=== PATIENT | male | born 1960 | race American Indian/Alaskan Native ===

== ENCOUNTER → 2018-11-04 11:27 | Outpatient (CLI) | payer MEDICARE, OTHER, SELFPAY ==
--- NOTE | 2018-11-04 | DI.RAD.S_ITS ---
PROCEDURE: XR CHEST 2V INDICATIONS: COUGH TECHNIQUE: 2 views of the chest were acquired. COMPARISON: [facility], , CHEST 2 VIEW, 08/31/2013, 13:05. FINDINGS: Surgical changes and devices: None. Lungs and pleura: No pleural effusions or pneumothorax. Lungs are clear. Mediastinum: Mediastinal contours are normal. Heart size is normal. Bones and chest wall: No suspicious bony abnormalities. Soft tissues appear unremarkable. IMPRESSION: No acute pulmonary process. Dictated by: Marita Andersen M.D. on 11/04/2018 at 13:58 Approved by: Marita Andersen M.D. on 11/04/2018 at 13:58
== END ==
PROVIDERS: Family Provider Family Medicine; PCP Family Medicine; Visit Provider Family Medicine
DX: R05 Cough (principal)
CPT/HCPCS: 71046

== ENCOUNTER 2019-08-23 00:02 | Emergency (ER) | payer MEDICARE, MEDICAID, OTHER, SELFPAY ==
--- NOTE | 2019-08-23 00:06 | ED_ITS ---
HPI - General Adult General Chief complaint: Extremity Injury, Lower Stated complaint: left knee and ankle pain Time Seen by Provider: 08/23/19 00:06 Source: patient Mode of arrival: Wheelchair Limitations: no limitations History of Present Illness HPI narrative: 58-year-old male with a prior history of left total knee replacement here for evaluation of left knee/left lower extremity injury. Patient states that [place]. He states that he was going on the water slide he got his left knee bent backwards behind him. Was able to ambulate afterwards but as the day went on had increasing pain. Also no neck swelling in his left knee. He reports no ankle pain but does have pain in his left lower extremity. Has not tried anything for symptoms prior to arrival Related Data Home Medications Medication Instructions Recorded Confirmed NAPROXEN (EC-Naprosyn) 500 mg PO #0 07/10/11 lisinopril [Zestril] 40 mg PO QDAY #0 07/10/11 Previous Rx's Medication Instructions Recorded sulfamethoxazole-trimethoprim 1 tab PO BID #20 tab 08/20/16 Allergies Allergy/AdvReac Type Severity Reaction Status Date / Time NSAIDS (Non-Steroidal Allergy Unknown Verified 08/23/19 00:22 Anti-Inflamma [NSAIDS (NON-STEROIDAL ANTI-INFLAMMA] From [facility] Allergy Mild RASH Uncoded 08/23/19 00:22 Review of Systems Constitutional Constitutional: Denies fatigue and Denies fever(s) Musculoskeletal Musculoskeletal: Denies tingling Comments: Left knee pain Integumentary/Breasts Skin/Breast: Denies lesions and Denies rash Neurologic Neurologic: Denies behavioral changes and Denies tingling Psychiatric Psychiatric: Denies behavioral changes Endocrine Endocrine: Denies fatigue Hematologic/Lymphatic Hematologic/Lymphatic: Denies easy bleeding and Denies easy bruising [facility] Medical History FHx: total knee replacement (Acute) Hypertension (Acute) Social History Smoking Status: Current every day smoker Social History Smoking Status: Current every day smoker Exam Initial Vital Signs Initial Vital Signs: Vital Signs Temperature 98.1 F 08/23/19 00:18 Pulse Rate 100 H 08/23/19 00:18 Respiratory Rate 16 08/23/19 00:18 Blood Pressure 132/88 08/23/19 00:18 Pulse Oximetry 100 08/23/19 00:18 Const General: cooperative, comfortable and well developed Orientation: alert, awake and oriented x3 Resp Effort & Inspection: normal respiratory effort Cardio Pulses: dorsalis pedis present on the left Skin Lesions: no lesions Rashes: no rashes Neuro General: alert and awake Sensory Exam: no sensory deficits noted Extrem General: normal to inspection, capillary refill normal and No edema Other: Moderate effusion left knee. Tenderness to palpation around the left knee and on the left tib-fib region. Can do a straight leg raise. Can bend his left knee with minimal tenderness. Can flex and extend his ankle. Left hip unremarkable. Procedures Orthopedic Splinting/Casting Injury #1: Side: left Lower Extremity Injury Location: knee Lower Extremity Immobilizer: Brock wrap Post splinting neuro exam: no change Post splinting vascular exam: no change Placed by: Nursing Course Orders Ordered: ED Orders 08/23/19 00:17 XR knee LT 3V Stat 08/23/19 00:20 XR tibia fibula LT 2V Stat Vital Signs Vital signs: Vital Signs - 8 hr 08/23/19 00:18 08/23/19 01:18 Temperature 98.1 F Pulse Rate 100 H 89 Respiratory Rate 16 17 Blood Pressure 132/88 131/77 Pulse Oximetry 100 99 Medical Decision Making Imaging Data Left tib-fib x-ray: Attestation: I personally reviewed and interpreted this imaging study as follows: My impression: No acute changes, no fractures, no dislocations, Left knee x-ray: Attestation: I personally reviewed and interpreted this imaging study as follows: My impression: Prosthesis in place. No fractures, no dislocations, MDM Narrative Medical decision making narrative: Patient is neurovascularly intact. No fractures noted on the x-rays. Does have a moderate effusion of his left knee. Suspect soft tissue injury. Patient was given an Brock bandage. Offered crutches her he declined. He was given return precautions and follow-up instructions. We did discuss care instructions to include rest and ice and elevation. He expressed understanding and agreement with plan. Discharge Plan Departure Patient Disposition: Home Clinical Impression: Left knee sprain Qualifiers: Encounter type: initial encounter Involved ligament of knee: unspecified ligament Qualified Code(s): S83.92XA - Sprain of unspecified site of left knee, initial encounter Discharge Date/Time: 08/23/19 01:19 Instructions: DI for Knee Sprain, How to Apply an Elastic Wrap on Knee Activity Restrictions/Additional Instructions: Keep your leg elevated. Use ice. You can take Tylenol and/or ibuprofen for any discomfort. You can walk on your leg. There are no broken bones on the x-rays. Contact your primary provider for follow-up. Return to the emergency department for any new or worsening symptoms Prescriptions: No Action lisinopril [Zestril] 40 MG tablet 40 mg PO QDAY Qty: 0 RF: 0 NAPROXEN (EC-Naprosyn) 500 mg PO Qty: 0 RF: 0 sulfamethoxazole-trimethoprim 800 MG/160 MG tablet 1 tab PO BID Qty: 20 RF: 0 Referrals: Anjelica New MD [Primary Care Provider] -
--- NOTE | 2019-08-23 00:17 | DI.RAD.S_ITS ---
PROCEDURE: XR KNEE LT 3V INDICATIONS: pain after injury TECHNIQUE: 3 views of the knee were acquired. COMPARISON: [facility], , KNEE 3V LEFT, 05/06/2011, 14:57. FINDINGS: Bones: No fractures or dislocations. No suspicious bony lesions. The arthroplasty components are in expected position. No evidence of loosening. Soft tissues: Small joint effusion. No suspicious soft tissue calcifications. IMPRESSION: Small joint effusion may indicate internal derangement. Knee arthroplasty components appear intact without evidence of hardware failure. Dictated by: Shruti Mcnaamra M.D. on 08/23/2019 at 8:33 Approved by: Shruti Mcnamara M.D. on 08/23/2019 at 8:34
[2019-08-23 00:18] VITALS: BP 132/88; PULSE 100; RESP 16; TEMP 36.7; O2SAT 100; BMI 31.4
--- NOTE | 2019-08-23 00:20 | DI.RAD.S_ITS ---
PROCEDURE: XR TIBIA FIBULA RT 2V INDICATIONS: pain after fall TECHNIQUE: 2 views of the tibia and fibula were acquired. COMPARISON: None. FINDINGS: Bones: No fractures or dislocations. No suspicious bony lesions. The knee arthroplasty components are partially imaged in the visible portion appears intact. Soft tissues: No suspicious soft tissue calcifications or masses. IMPRESSION: Intact left tibia and fibula. Dictated by: Shruti Mcnamara M.D. on 08/23/2019 at 8:31 Approved by: Shruti Mcnamara M.D. on 08/23/2019 at 8:32
[2019-08-23 01:18] VITALS: BP 131/77; PULSE 89; RESP 17; O2SAT 99
== END 2019-08-23 01:19 | disposition home or self-care (01) ==
PROVIDERS: Emergency Provider Emergency Medicine; Family Provider Family Medicine; PCP Family Medicine
DX: S83.92XA Sprain of unspecified site of left knee, initial encounter (principal); Y93.18 Activity, surfing, windsurfing and boogie boarding
CPT/HCPCS: 73562; 73590; 99282; 99283

== ENCOUNTER → 2021-09-06 09:41 | Outpatient (CLI) | payer MEDICARE, MEDICAID, OTHER, SELFPAY ==
[2021-09-06 11:06] LABS: COVID19 -Nasal RAPID Negative (Negative)
== END ==
PROVIDERS: Family Provider Family Medicine; PCP Family Medicine; Visit Provider Specialist
DX: Z01.812 Encounter for preprocedural laboratory examination (principal); Z20.822 Contact with and (suspected) exposure to COVID-19
CPT/HCPCS: 87635; C9803

== ENCOUNTER → 2021-10-22 10:08 | Outpatient (CLI) | payer MEDICARE, OTHER, SELFPAY ==
[2021-10-22 13:01] LABS: COVID19 -Nasal RAPID Negative (Negative)
== END ==
PROVIDERS: Family Provider Family Medicine; PCP Family Medicine; Referring Provider Specialist; Visit Provider Specialist
DX: Z01.812 Encounter for preprocedural laboratory examination (principal); Z20.822 Contact with and (suspected) exposure to COVID-19
CPT/HCPCS: 87635; C9803

== ENCOUNTER 2021-10-24 07:19 | Day surgery (SDC) | payer MEDICARE, OTHER, SELFPAY ==
--- NOTE | 2021-10-24 | PATH_ITS ---
[facility] Accession Number: [id number] . 01 Material submitted: . PART A: colon - POLYPS AT 30 CM PART B: colon - CECUM POLYPS . 02 Diagnosis: A. Polyps at 30 cm: Multiple (approximately three) portions of tubular adenoma. Multiple (approximately six) portions of serrated lesion, favor hyperplastic polyp. . B. Cecum Polyps: Multiple (approximately eight) portions of tubular adenoma. MRV 10/29/2021 1107 Local . 02 Electronically signed: . Babita Dolan MD, Pathologist NPI- [id number] . 01 Gross description: . A. Received in formalin, labeled polyps at 30 cm consist of multiple abraham-pink fragments of soft tissue measuring 2.0 x 1.0 x 0.2 cm in aggregate. The specimen is filtered and entirely submitted in cassette A1. B. Received in formalin, labeled cecum polyps consist of multiple abraham-pink fragments of soft tissue measuring 1.5 x 1.0 x 0.2 cm in aggregate. The specimen is filtered and entirely submitted in cassette B1. ([id number]) /MRV 10/26/2021 1600 Local . 02 Pathologist provided ICD-10: K63.5 . 02 CPT . 180586, [id number] Performed at: 01 [facility] [address], [place], [place] [id number] MD Ian Castillo MD Phone: [phone] Performed at: 02 [facility] [address] [place], [place] [id number] MD Bonnie Berry MD Phone: [phone]
[2021-10-24 07:35] VITALS: BP 134/88; PULSE 103; RESP 16; TEMP 36.3; O2SAT 98; BMI 33.5
[2021-10-24] MEDS: LACTATED RINGERS 1,000 ML 42 ML IV (07:53)
--- NOTE | 2021-10-24 08:36 | PM.HP.1 ---
History of Present Illness History of Present Illness Chief complaint: SCREENING COLONOSCOPY Narrative: The patient is a gentleman here for a colonoscopy. He was advised to have a colonoscopy 3 years after his last 1. Because of COVID there is been a delay and it is now been over 4 years. He had a polyp removed at this last colonoscopy. Our records indicate that his last colonoscopy was actually in 2013. I can find no other record after that. He had an adenoma removed at that time. Patient History Medical History (Updated 10/24/21 @ 08:42 by Alexys Guzman MD) FHx: total knee replacement Hypertension Family & Social History Social History: household members spouse Tobacco & Substance use: Smoking Status Former smoker alcohol intake former alcohol intake frequency 0-2 drinks per day Substance Use Type marijuana Meds Home Medications and Allergies Home Medications Medication Instructions Recorded Confirmed Type lisinopril 40 mg tablet (Zestril) 40 mg PO QDAY #0 07/10/11 10/24/21 History atorvastatin 20 mg tablet 20 mg PO DAILY 07/26/21 10/24/21 History divalproex 125 mg capsule,delayed 250 mg PO BID 07/26/21 10/24/21 History release sprinkle metformin 500 mg tablet 500 mg PO BID 07/26/21 10/24/21 History exenatide microspheres 2 mg 2 mg SUBCUT WEEKLY 10/24/21 10/24/21 History subcutaneous extended release suspension Allergies Allergy/AdvReac Type Severity Reaction Status Date / Time NSAIDS (Non-Steroidal Allergy Unknown Verified 10/24/21 07:30 Anti-Inflamma [NSAIDS (NON-STEROIDAL ANTI-INFLAMMA] From [facility] Allergy Mild RASH Uncoded 08/23/19 00:22 Review of Systems Review of Systems Narrative: History of asthma. No breathing difficulties at this time. No heart problems or chest pain. No black or bloody bowel movements. He stopped drinking him this lost he thinks about 100 lb. He also stop smoking about a month ago. He feels much better. Exam Vital Signs (past 8 hours): - 10/24/21 07:35 Temperature 97.3 F L Pulse Rate 103 H Respiratory Rate 16 Blood Pressure 134/88 Pulse Oximetry 98 Oxygen Delivery Method Room Air Narrative Exam Narrative: Pleasant cooperative patient no apparent distress. Lungs are clear to auscultation. No rales or rhonchi. Heart regular rate and rhythm no murmur gallop. Abdomen is soft nontender without mass. No obvious hernias. Patient is alert and oriented x3. Assessment & Plan Assessment and plan (1) Screening for colon cancer: Status: Acute Assessment & Plan narrative: Patient here for colonoscopy. I have discussed the procedure and the rationale with the patient including risks of bleeding, perforation which would necessitate a major operation, failure to find remove all lesions and the potential to tattoo. They appeared to understand and wished to proceed. Time Spent With Patient Critical Care time: I spent a total of [] minutes of critical care time on this patient's care today; this time is exclusive of procedural time.
--- NOTE | 2021-10-24 08:43 | PM.PREOP ---
Pre-operative Note COVID-19 COVID-19 status: Negative Result date/Date tested (Pos, Neg/Pending): 10/23/21 Interval Note History & Physical reviewed/Exam performed by Physician: Yes Changes to H&P: No ASA Class (for procedural sedation): III
[2021-10-24 09:50] VITALS: BP 114/63; PULSE 79; RESP 16; TEMP 36.6; O2SAT 100
[2021-10-24] MEDS: fentaNYL 250 MCG/5 ML INJ IV (09:50)
--- NOTE | 2021-10-24 09:50 | P.OP.COLON_ITS ---
Operative Date/Time/Diagnoses Date of procedure: 10/24/21 Time of procedure: 09:50 Pre-op diagnosis: Screening colonoscopy. Last exam 7 years ago. Patient has a personal history of polyps. Post-op diagnosis: same (Twelve polyps removed. Extensive sigmoid diverticulosis.) Procedure & Clinicians Study performed: Colonoscopy with hot snare polypectomy times 2 and cold biopsy of the remaining 10 polyps. Same procedure as scheduled: Yes Indications: Screening in high risk patient. Surgeon: Alexys Guzman Procedure Notes SCOAP/Timeout: Performed Procedure in detail: The patient was placed in the left lateral decubitus position and underwent IV sedation directed by the surgeon consisting of fentanyl and Versed. Digital exam was unremarkable except for decreased sphincter tone. His prostate is small without mass. The scope was inserted and advanced through the rectum into the sigmoid, descending, transverse, and ascending colon. Two polyps were biopsied at [address] Patient was noted to have other polyps in that region which I decided to remove on the way out. The patient also had extensive sigmoid diverticulosis. The cecum was reached identified by the ileocecal valve and the appendiceal opening. Four polyps were identified in this area. Two were snared to remove them. None was larger than a cm in appearance. Two smaller polyps were removed with biopsy forceps. To these polyps were in the cecum proper. The other 2 were just distal to the cecum in the ascending colon. There were all placed in the same container due to their proximity to 1 another. The scope was gradually brought out. Additional polyps were found in the region of 30 cm from the anal verge. This included 6 additional polyps which were biopsied and removed with cold biopsy forceps. All were placed in t he container with the 1st 2 polyps do the proximity to 1 another. Scope ultimately was retroflexed in the rectum. The appearance was normal except for some moderate but non inflamed or ulcerated hemorrhoids. The scope was removed and the patient tolerated the procedure well. The prep was good. There was lot of liquid stool in the colon but this was able to be suction. Scope withdrawal time: 12 minutes(24 total) Sedation minutes: 59 Findings: divertiulosis and polyp(s) Specimen(s): other (Twelve polyps sent in 2 containers.) Complications: none Post-procedure Recommendations: Colonoscopy in 3 years Follow up: as needed Disposition: PACU
[2021-10-24] MEDS: MIDAZOLAM 5 MG/5 ML VIAL IV (09:51)
[2021-10-24 09:55] VITALS: BP 127/79; PULSE 79; RESP 16; O2SAT 99
[2021-10-24 10:00] VITALS: BP 118/87; PULSE 80; RESP 15; O2SAT 98
[2021-10-24 10:06] VITALS: BP 133/90; PULSE 75; RESP 16; TEMP 36.4; O2SAT 100
== END 2021-10-24 10:17 | disposition home or self-care (01) ==
PROVIDERS: Family Provider Family Medicine; PCP Family Medicine; Referring Provider Specialist; Visit Provider Specialist
PROC: 0DJD8ZZ Inspection of Lower Intestinal Tract, Via Natural or Artificial Opening Endoscopic (ICD-10-PCS; CPT 45378; principal; 2021-10-24 08:30)
DX: Z12.11 Encounter for screening for malignant neoplasm of colon (principal); Z86.010 Personal history of colon polyps; K57.30 Diverticulosis of large intestine without perforation or abscess without bleeding; K64.8 Other hemorrhoids; D12.0 Benign neoplasm of cecum; D12.6 Benign neoplasm of colon, unspecified
CPT/HCPCS: 45385; 45380; 99152; 99153; J2250; J3010

== ENCOUNTER 2021-12-12 12:56 | Emergency (ER) | payer MEDICARE, OTHER, SELFPAY ==
[2021-12-12 13:20] VITALS: BP 128/80; PULSE 79; RESP 13; TEMP 36.5; O2SAT 96; BMI 33.5
== END 2021-12-12 15:32 | disposition left against medical advice (07) ==
PROVIDERS: Emergency Provider Emergency Medicine; Family Provider Family Medicine; PCP Family Medicine
DX: E11.65 Type 2 diabetes mellitus with hyperglycemia (principal)
CPT/HCPCS: 82962; 99281